=== PATIENT | female | born 1985 | race Caucasian/White ===

== ENCOUNTER 2017-12-24 09:30 | Inpatient (IN) | payer OTHER, SELFPAY ==
[2017-12-24 09:08] VITALS: BMI 31.0
[2017-12-24 09:27] LABS: ROM Internal Control Test YES-OK TO RESULT pt. (Internal QC)
[2017-12-24 09:29] LABS: ROM Patient Test POSITIVE (Negative)
[2017-12-24] MEDS: Lactated Ringers 1,000 ML 50 ML IV ×4 (10:40→21:42)
[2017-12-24 10:54] LABS: Hematocrit 37.5 % (37-47); Hemoglobin 12.2 g/dl (12.0-15.0); Mean Corp Hgb Conc 32.5 g/gl (32-36); Mean Corpuscular Hgb 29.3 pg (27.0-32.0); Mean Corpuscular Volume 90.1 fL (81-99); Mean Platelet Vol. 11.7 fl (6.2-12.0); Platelet Count 196 K/mm3 (150-450); RBC Distribution Width CV 13.5 % (11.6-14.6); RBC Distribution Width SD 44.6 fl (35.1-43.9); Red Blood Count 4.16 M/mm3 (4.2-5.4); White Blood Count 11.5 K/mm3 (4.4-11.0)
[2017-12-24 10:55] LABS: Scan Indicated on CBC? Y/N NO
--- NOTE | 2017-12-24 12:27 | PCM.HP.OB ---
- Problem List (1) Post-dates Status: Acute Qualifiers: Post-term type: 40-42 weeks gestation Qualified Code(s): O48.0 - Post-term (2) conceived through in vitro fertilization Status: Acute Qualifiers: Trimester: third trimester Qualified Code(s): O09.813 - Supervision of resulting from assisted reproductive technology, third trimester (3) Karina's thyroiditis Status: Acute (4) Excessive growth affecting management of mother in third trimester, antepartum Status: Acute Qualifiers: Fetus number: single or unspecified fetus Qualified Code(s): O36.63X0 - Maternal care for excessive growth, third trimester, not applicable or unspecified (5) History of spontaneous , currently Status: Acute History Date of Admission: 12/24/17 Gestational age: 40 History of this : 32 year old female. at 40 weeks 2days EGA by embryo transfer date, JERRI 12/22/17. IVF . Presented to L&D with contractions that started at 0400 this am. [place] small gush of fluid in shower around 0700. Arrived to L&D around 0815 and was karen every 3minutes. ROM plus positive and admitted. at bedside. Sitting on ball and breathing with contractions. history: History of infertility and current concieved through IVF. Previous spontaneous post IVF Karina's Excessive weight gain >92nd% Allergies doxycycline Adverse Reaction (Verified 12/24/17 09:10) Rash Current Medications Acetaminophen (Tylenol) 325 - 650 mg PO Q4H PRN PRN PRN Reason: PAIN OR FEVER >100.4F Al Hydroxide/Mg Hydroxide (Mylanta Ii) 15 - 30 ml PO Q4H PRN PRN PRN Reason: INDIGESTION Citric Acid/Sodium Citrate (Bicitra) 30 ml PO UD PRN Lactated Ringer's () 1,000 mls @ 50 mls/hr IV .Q20H CHRISTINA Nalbuphine HCl (Nubain) 5 - 10 mg IV Q3H PRN PRN PRN Reason: PAIN (4-10/10) Ondansetron HCl (Zofran) 4 mg IV Q8H PRN PRN PRN Reason: NAUSEA Promethazine HCl (Phenergan (Ll)) 6.25 - 12.5 mg IV Q4H PRN PRN; Protocol PRN Reason: IF NAUSEA PERSISTS Sodium Chloride () 5 - 15 ml IV UD CHRISTINA Smoking Status: Never smoker Alcohol: None Drug Use: none Number of Fetus(es): 1 Review of Systems Constitutional: Denies: Chills, Fever, Weight Change Cardiovascular: Denies: Chest Pain, Palpitations Respiratory: Denies: Cough, Shortness of breath at rest, Sputum production Gastrointestinal: Denies: Nausea, Vomiting Genitourinary: Denies: Dysuria Physical Exam Vitals: GBS negative HIV negative RPR negative HBsAG negative 1hr GCT negative A negative-Rhogam given at 28 weeks Antibody screen negative GC/CT negative Rubella Immune U/S: 12/13/17 EFW 8lb 12oz, 92nd % ROM plus positive General: Alert, Oriented x3, No apparent distress, - - Coping well with contractions. Cardiovascular: Regular rate, Regular Rhythm, No murmurs Lungs: Clear to auscultation, No rhonchi, No wheeze Abdomen: Bowel Sounds Present, Gravid Extremities:: No edema Presentation: Cephalic Cervix Dilation (cm): 4 Station: -1 Effacement (%): 80 - FHT 135, moderate variability, no decels, Category 1. TOCO: q2-4 minutes, moderated to palpation. Assessment/Plan Active and Suspected Problems Post-dates (Acute) conceived through in vitro fertilization (Acute) Karina's thyroiditis (Acute) Excessive growth affecting management of mother in third trimester, antepartum (Acute) History of spontaneous , currently (Acute) A: Active Labor Spontaneous Rupture of Membranes Suspected macrosomia P: 1) Admit to L&D, routine orders 2) Planning epidural for pain management. Positional changes at this time, coping well and can request epidural when desired 3) Consulted regarding suspected macrosomia. Will be present for delivery. 4) GBS negative Gloria Garrido CNM
[2017-12-24] MEDS: Oxytocin 30 units/NS 500 ml 30 UNITS/500 ML IV.SOLN IV (15:50)
[2017-12-25] VITALS (28 sets, daily range): BP systolic 111–136; BP diastolic 52–84; PULSE 83–121; RESP 14–20; TEMP 36.1–37.8; O2SAT 96–100
[2017-12-25] MEDS: Acetaminophen 325 MG Tablet PO (03:06)
[2017-12-25] MEDS: Sodium Citrate/Citric Acid 30 ML UDC PO (03:20)
[2017-12-25] MEDS: Oxytocin 30 units/NS 500 ml 30 UNITS/500 ML IV.SOLN 167 UNITS IV (03:43)
[2017-12-25] MEDS: Ketorolac 30 MG/ML Syringe IV ×4 (04:00→21:41)
--- NOTE | 2017-12-25 04:11 | PCM.OPRPT ---
Report of Operation Date of Procedure: 12/25/17 Pre-Operative Diagnosis: arrest of descent and dilation Post-Operative Diagnosis: same Surgery/Procedure Performed:: primary LTCS cotton bag sewer: Gabbi Brooke
--- NOTE | 2017-12-25 04:15 | PCM.OB.CSR ---
Delivery Classification: MARY Final JERRI: 12/22/17 Final JERRI Source: US <20 weeks Gestational age: 40 Weeks and 3 Days Indications: Arrest of descent and dilation Description of Procedure: The patient had arrived in labor. Her labor was augmented. She began to have late decelerations that time she had minimal variability. I was called into evaluate her. At that point she had normal baseline with moderate variability and excels in no recurrent decelerations. However she remains 6 cm other than 4 hours despite adequate contractions. In addition her labor has been slowly progressing since her admission. The cervix was somewhat swollen and station was still -2 though there was a large amount of caput at this point. We reviewed the indication for . There is another starting and the decision was made that the fetus and mother were stable enough to wait for completion of that surgery. Questions were answered to her satisfaction she desired to proceed. The patient was taken to the operating room. She was prepped and draped in the dorsal supine position with a leftward tilt. A Pfannenstiel skin incision was made approximately 2 cm above the symphysis pubis and carried through to underlying layer fascia with the scalpel. The fascia was incised incised in the midline and extended laterally with the Payne scissors. The fascia was dissected off the rectus muscles with blunt and sharp dissection. The rectus muscles were in the midline and the peritoneum was entered bluntly. The peritoneal incision was stretched and the bladder blade was placed. The uterine incision was made in a low transverse fashion with the scalpel and extended superiorly and inferiorly with blunt dissection. Clear amniotic fluid returned.. The 's head was brought to the incision in the flexed position and delivered without difficulty. The remainder of the infant was delivered with gentle traction and fundal pressure in the standard fashion. The mouth and nares were bulb suctioned. The cord was clamped and cut as the infant was stimulated. The cord was clamped immediately as the was making some respiratory efforts but was not immediately vigorous. The infant was handed off to the waiting nursing staff. The placenta was delivered with fundal massage and gentle traction in the standard fashion. The uterus was exteriorized and cleared of all clots and debris.. The uterine incision was closed with #1 Vicryl in a running locked fashion. A second layer of the same suture was used in an imbricating fashion and the incision was examined for hemostasis. The uterus was placed back into the peritoneal cavity and hemostasis was assured. The rectus muscles were examined and any bleeding was Bovie cauterized. The parietal peritoneum and rectus muscles were closed en bloc with interrupted 0 Vicryl mattress sutures. The rectus fascia was examined and the bleeding was Bovie cauterized and the rectus fascia was closed with 1 Vicryl suture in a running standard fashion. The subcutaneous tissue was examining and any bleeding was Bovie cauterized. The skin was closed in a subcuticular fashion by the CONSTRUCTION SAFETY CONSULTANT with me present in the labor and delivery suite. All sponge, lap, and needle counts were correct. The patient was taken to her room for recovery in a stable condition. Amniotic Membrane Rupture Type: Spontaneous Amniotic Fluid Description: Clear Placenta Disposition: [facility] Drain: Rodríguez to straight drain Fluids Replaced: 1000 cc LR Cord Entanglement: None Cord Vessel Description: 3 Vessels Esitmated Blood Loss (ml): 800 Infant Gender: Male (1 minute): 8 (5 minute): 9 Delayed cord clamping: No Pre-op Antibiotic Given: Ancef 2 grams IV x1 Complications: None - Admit VTE Documentation VTE Present on Admission: No VTE Mechan Device Prophylaxis: SCD's VTE Pharm Prophylaxis ordered?: No Reason prophylaxis not ordered:: Procedure Not Indicated
[2017-12-25] MEDS: Lactated Ringers 1,000 ML 100 ML IV ×3 (04:30→17:51)
[2017-12-25] MEDS: Levothyroxine 50 MCG Tablet PO (08:18)
[2017-12-25] MEDS: Prenatal Vits Tablet 1 TABLET PO (11:35)
[2017-12-25] MEDS: Acetaminophen 500 MG Tablet 1000 MG PO (15:44)
--- NOTE | 2017-12-25 16:04 | NURSING ---
Raised red rash noted at site of surgical drape. Skin warm to touch.
--- NOTE | 2017-12-25 17:54 | NURSING ---
at 1200 pads changed for small amt of rubra lochia
--- NOTE | 2017-12-25 17:55 | NURSING ---
prior to getting mom up to chair her pads changed for small amt of chris mueller at 1430
--- NOTE | 2017-12-25 18:51 | PCM.PN.OB ---
Patient Problems: Active and Suspected Problems History of spontaneous , currently (Acute) Excessive growth affecting management of mother in third trimester, antepartum (Acute) Karina's thyroiditis (Acute) conceived through in vitro fertilization (Acute) Post-dates (Acute) Subjective: No nausea. Pain well controlled. - Physical Exam General: Alert, Cooperative, No apparent distress Vital Signs Temp Pulse Resp BP Pulse Ox 98.9 F 92 16 123/71 H 98 12/25/17 16:45 12/25/17 18:00 12/25/17 18:00 12/25/17 15:50 12/25/17 18:00 Oxygen Delivery Method Room Air Weight: 79.5 kg Body Mass Index (BMI) 31.0 Intake and Output for Last 24 Hours 12/23/17 12/24/17 12/25/17 23:59 23:59 23:59 Intake Total 3271 / 3271 5452.6 / 5452.6 Output Total 1350 / 1350 4250 / 4250 Balance 1921 / 1921 1202.6 / 1202.6 Laboratory Tests Past 24 Hrs 12/25/17 07:50 Screen NEGATIVE Baby's Blood Type A POSITIVE Baby's DIEGO NEGATIVE Assessment/Plan Active and Suspected Problems History of spontaneous , currently (Acute) Excessive growth affecting management of mother in third trimester, antepartum (Acute) Karina's thyroiditis (Acute) conceived through in vitro fertilization (Acute) Post-dates (Acute) POD#0 s/p primary c/s doing well routine care
[2017-12-26 00:20] VITALS: BP 112/78; PULSE 80; RESP 16; TEMP 36.6; O2SAT 99
[2017-12-26 02:00] VITALS: PULSE 80; RESP 16; O2SAT 99
[2017-12-26] MEDS: Ketorolac 30 MG/ML Syringe IV ×4 (03:38→22:16)
[2017-12-26 03:52] VITALS: BP 119/57; PULSE 88; RESP 16; TEMP 36.8; O2SAT 99
[2017-12-26 05:17] LABS: Hemoglobin 9.5 g/dl (12.0-15.0); Mean Corp Hgb Conc 32.8 g/gl (32-36); Mean Corpuscular Hgb 30.3 pg (27.0-32.0); Mean Corpuscular Volume 92.4 fL (81-99); Platelet Count 160 K/mm3 (150-450); RBC Distribution Width CV 13.8 % (11.6-14.6); RBC Distribution Width SD 45.2 fl (35.1-43.9); Red Blood Count 3.14 M/mm3 (4.2-5.4); White Blood Count 16.8 K/mm3 (4.4-11.0)
[2017-12-26 05:29] LABS: Scan Indicated on CBC? Y/N NO
[2017-12-26] MEDS: Levothyroxine 50 MCG Tablet PO (05:33)
[2017-12-26 08:00] VITALS: BP 112/71; PULSE 88; TEMP 36.8; O2SAT 96
[2017-12-26] MEDS: Acetaminophen 500 MG Tablet 1000 MG PO ×2 (08:21→20:45)
--- NOTE | 2017-12-26 08:52 | PCM.PN.OB ---
Patient Problems: Active and Suspected Problems History of spontaneous , currently (Acute) Excessive growth affecting management of mother in third trimester, antepartum (Acute) Karina's thyroiditis (Acute) conceived through in vitro fertilization (Acute) Post-dates (Acute) Subjective: pain well controlled, average lochia. No N/V. Working on - Physical Exam General: Alert, Cooperative, No apparent distress Abdomen: Soft, Distended - moderately, softly, Tender - appropriately Extremities: Edema - 1+ Skin: Incision - bandage clean, dry and intact Vital Signs Temp Pulse Resp BP Pulse Ox 98.3 F 88 16 112/71 96 12/26/17 08:00 12/26/17 08:00 12/26/17 03:52 12/26/17 08:00 12/26/17 08:00 Oxygen Delivery Method Room Air Weight: 79.5 kg Body Mass Index (BMI) 31.0 Intake and Output for Last 24 Hours 12/24/17 12/25/17 12/26/17 23:59 23:59 23:59 Intake Total 3271 / 3271 6122.6 / 6122.6 800 / 800 Output Total 1350 / 1350 5050 / 5050 1900 / 1900 Balance 1921 / 1921 1072.6 / 1072.6 -1100 / -1100 Laboratory Tests Past 24 Hrs 12/25/17 12/26/17 07:50 04:50 WBC 16.8 H RBC 3.14 L Hgb 9.5 L Hct 29.0 L MCV 92.4 MCH 30.3 MCHC 32.8 RDW 13.8 RDW Differential 45.2 H Plt Count 160 MPV 12.0 Screen NEGATIVE Baby's Blood Type A POSITIVE Baby's DIEGO NEGATIVE Assessment/Plan Active and Suspected Problems History of spontaneous , currently (Acute) Excessive growth affecting management of mother in third trimester, antepartum (Acute) Karina's thyroiditis (Acute) conceived through in vitro fertilization (Acute) Post-dates (Acute) POD#1 doing well mild acute blood loss anemia appropriate for EBL from surgery infant doing well routine care
[2017-12-26] MEDS: 0.9% Saline Lock 10 ML Syringe IV ×3 (10:42→22:16)
[2017-12-26] MEDS: Prenatal Vits Tablet 1 TABLET PO (13:17)
[2017-12-26] MEDS: Senna Tablet 2 TABLET PO (14:22)
[2017-12-26 14:24] VITALS: BP 117/78; PULSE 85; RESP 16; TEMP 36.8; O2SAT 97
--- NOTE | 2017-12-26 16:42 | NURSING ---
1500 Mom requesting an electric breast pump for home use. Pump given per insurance verification and instructed on using her pump. Mom doing a great job with feedings. Ciara
[2017-12-26 20:25] VITALS: BP 125/75; PULSE 103; RESP 18; TEMP 37.6; O2SAT 96
[2017-12-27 02:10] VITALS: BP 120/69; PULSE 92; RESP 18; TEMP 36.4; O2SAT 97
[2017-12-27] MEDS: Naproxen 250 MG Tablet PO ×2 (06:00→14:58)
[2017-12-27] MEDS: Levothyroxine 25 MCG TABLET PO (06:08)
[2017-12-27 08:09] VITALS: BP 113/63; PULSE 86; RESP 18; TEMP 36.8; O2SAT 97
--- NOTE | 2017-12-27 08:09 | PCM.PN.OB ---
Patient Problems: Active and Suspected Problems History of spontaneous , currently (Acute) Excessive growth affecting management of mother in third trimester, antepartum (Acute) Karina's thyroiditis (Acute) conceived through in vitro fertilization (Acute) Post-dates (Acute) Subjective: pain well controlled, average lochia, no N/V, +flatus, no BM - Physical Exam General: Alert, Cooperative, No apparent distress Abdomen: Soft, Distended - moderately, softly, Tender - appropriately Extremities: Edema - 1+ Skin: Incision - bandage clean, dry and intact Vital Signs Temp Pulse Resp BP Pulse Ox 97.6 F L 92 18 120/69 97 12/27/17 02:10 12/27/17 02:10 12/27/17 02:10 12/27/17 02:10 12/27/17 02:10 Oxygen Delivery Method Room Air Weight: 79.5 kg Body Mass Index (BMI) 31.0 Intake and Output for Last 24 Hours 12/25/17 12/26/17 12/27/17 23:59 23:59 23:59 Intake Total 6122.6 / 6122.6 800 / 800 Output Total 5050 / 5050 1900 / 1900 Balance 1072.6 / 1072.6 -1100 / -1100 Assessment/Plan Active and Suspected Problems History of spontaneous , currently (Acute) Excessive growth affecting management of mother in third trimester, antepartum (Acute) Karina's thyroiditis (Acute) conceived through in vitro fertilization (Acute) Post-dates (Acute) POD#2 doing well working on likely home later today
--- NOTE | 2017-12-27 08:11 | PCM.DC.SUM ---
Discharge Date and Diagnosis - Problem List Patient Problems: Active and Suspected Problems History of spontaneous , currently (Acute) Excessive growth affecting management of mother in third trimester, antepartum (Acute) Karina's thyroiditis (Acute) conceived through in vitro fertilization (Acute) Post-dates (Acute) Date of Admission: 12/24/17 Date of Discharge: 12/27/17 - Primary Discharge Diagnosis Active and Suspected Problems History of spontaneous , currently (Acute) Excessive growth affecting management of mother in third trimester, antepartum (Acute) Karina's thyroiditis (Acute) conceived through in vitro fertilization (Acute) Post-dates (Acute) Hospital Course and Treatment Operations: - - primary LTCS via pfannensteil skin incision Procedures: None Summary of Care Provided: The patient is a 32 year old Female admitted in labor on 12/24/16 in labor. It was augmented. On 12/25/16 she remained 6 cm despite > 4 hrs of labor. Moderate caput. Primary LTCS performed without difficulty. Postop course unremarkable. Desired d/c on POD#2. [] Home Medications: Medications to take at Discharge Cetirizine HCl [Zyrtec] 10 mg PO DAILY 12/24/17 Levothyroxine [Synthroid] 25 mcg PO DAILY 12/24/17 Levothyroxine [Synthroid] 50 mcg PO DAILY 12/24/17 Vit Calc,Iron,Folic [ Vitamins] 1 tab PO DAILY 12/24/17 Ibuprofen [Motrin] 600 mg PO Q6H PRN #60 tab 12/27/17 Oxycodone HCl/Acetaminophen [Percocet 5/325] 1 - 2 tablet PO Q8 PRN 7 Days #28 tablet 12/27/17 Following Prescrptions Were Given to Patient: Oxycodone HCl/Acetaminophen [Percocet 5/325] 1 - 2 tablet PO Q8 PRN 7 Days #28 tablet PRN Reason: Pain Ibuprofen [Motrin] 600 mg PO Q6H PRN #60 tab PRN Reason: Pain Other Amb Orders: Electric breast pump Location: None Selected Primary Care Physician: Temo Kunz MD [Primary Care Provider] - Meaningful Use Info Meaningful Use Diagnoses (Choose all that apply): None applicable
[2017-12-27] MEDS: Acetaminophen 500 MG Tablet 1000 MG PO (08:25)
[2017-12-27] MEDS: Senna Tablet 2 TABLET PO (11:45)
[2017-12-27] MEDS: Prenatal Vits Tablet 1 TABLET PO (11:45)
== END 2017-12-27 17:20 | disposition home or self-care (01) | DRG 765 ==
LOC: WPOUT 09:33
PROVIDERS: Advanced Practice Midwife; Admitting Provider Obstetrics & Gynecology; Family Provider Family Medicine; PCP Family Medicine; Visit Provider Obstetrics & Gynecology
DX: O62.1 Secondary uterine inertia (principal); D62 Acute posthemorrhagic anemia; Z37.0 Single live birth; O99.02 Anemia complicating childbirth; O76 Abnormality in fetal heart rate and rhythm complicating labor and delivery; O48.0 Post-term pregnancy; E06.3 Autoimmune thyroiditis; O36.63X0 Maternal care for excessive fetal growth, third trimester, not applicable or unspecified; Z3A.40 40 weeks gestation of pregnancy
CPT/HCPCS: 59025; 59050; 84112; 85027; 85461; 86850; 86900; 90384; 99218; J7120; A4216; G0378; J2405; J2790

== ENCOUNTER → 2018-01-17 14:44 | Outpatient (CLI) | payer OTHER, SELFPAY ==
[2018-01-16 17:19] LABS: Absolute Lymphocyte Count 1.96 X10^3/ul (0.83-4.51); Absolute Neutrophil Count 8.4 X10^3/uL (2.0-7.7); Basophil# 0.05 X10^3/uL; Basophil% 0.4 % (0-1); Eosinophil# 0.29 X10^3/uL; Eosinophils% 2.5 % (0-5); Hematocrit 32.6 % (37-47); Lymphocyte # 1.96 X10^3/ul (4.0); Lymphocyte % 16.9 % (19-41); Mean Corp Hgb Conc 30.7 g/gl (32-36); Mean Corpuscular Hgb 28.6 pg (27.0-32.0); Mean Corpuscular Volume 93.1 fL (81-99); Mean Platelet Vol. 9.8 fl (6.2-12.0); Monocyte# 0.86 X10^3/uL; Monocyte% 7.4 % (0-10); Neutrophil # 8.36 X10^3/uL (2.7-7.7); Neutrophil % 72.2 % (47-70); Platelet Count 813 K/mm3 (150-450); RBC Distribution Width CV 13.6 % (11.6-14.6); RBC Distribution Width SD 44.7 fl (35.1-43.9); White Blood Count 11.6 K/mm3 (4.4-11.0)
[2018-01-16 17:27] LABS: Differential Indicated SCAN CRITERIA MET; POSITIVE COUNT YES; POSITIVE DIFFERENTIAL NO; POSITIVE MORPHOLOGY NO
[2018-01-16 17:40] LABS: Creatinine, Serum 0.64 mg/dL (0.55-1.02); EST Glomerular Filtration Rate 114 mL/min (>60); Est Glom Filt Rate - Afr Amer 138 mL/min (>60)
[2018-01-16 17:50] LABS: Differential Comment SCANNED
[2018-01-17 13:47] LABS: Pathologist Review Reviewed
--- NOTE | 2018-01-17 14:46 | CT_ITS ---
STUDY: CT ABDOMEN AND PELVIS WITH CONTRAST REASON FOR EXAM: Female, 32 years old. Postop fever after section on December 25, 2017.. RADIATION DOSAGE (If Supplied By Facility): CTDIvol = ( 12.64 ) mGy, DLP = ( 625.34 ) mGycm TECHNIQUE: Transaxial images were obtained from the dome of the diaphragm to the symphysis pubis without oral contrast. 100 ml of Isovue 300 contrast was administered. Sagittal and coronal images were reconstructed. Individualized dose optimization techniques were used for this CT. COMPARISON: Prior comparison studies are not available for review at this time. FINDINGS: There is a right-sided pleural effusion. There may be right basilar airspace consolidation and/or atelectasis. The left lung base is clear. The visualized portions of the heart are within normal limits. There is a loculated collection near the right lobe of liver that measures approximately 6.2 x 2.8 x 6.5 cm. There is a small loculated collection anterior to left lobe liver measuring 1.8 cm in size. There is a lucency within the posterior segment of the right lobe liver measuring approximately 2.5 cm in size. This could represent an hepatic abscess. There is a subtle lucency within the distal right lobe of the liver measuring 9.2 mm in size. This may represent a small hemangioma. The gallbladder is contracted. Normal spleen. Normal pancreas. Normal bilateral adrenal glands. Normal right kidney. There are nonobstructing calculi in lower pole of left kidney with the largest measuring approximately 5.8 mm in size. Is no evidence for hydronephrosis, hydroureter or radiopaque ureteral calculus. Normal visualized stomach. There is no evidence for dilated bowel or pneumoperitoneum. There is a small amount of pelvic fluid that could be postinfectious. Stool is visible throughout the colon suggesting possible fecal stasis and constipation. There is a calcified appendicolith. Normal abdominal aorta. Normal inferior vena cava. Normal retroperitoneum. Normal urinary bladder. The uterus is mildly enlarged probably related to recent . There appear to be a loculated collections anterior to the uterus adjacent to the urinary bladder that measures up to 2 cm in size. This could represent a tiny abscesses. There is also abnormal attenuation within the anterior lower uterine segment possibly related to recent section. This area of abnormal attenuation measures approximately 4.8 x 3.9 x 2.6 cm in size. This could represent either hematoma or abscess. Normal abdominal wall. Normal osseous structures. CT/Abdomen/Pelvis WITH Contrast IMPRESSION: 1. Right basilar airspace consolidation, atelectasis and pleural effusion could represent pneumonia. 2. Loculated collections adjacent to the liver as well as within the right lobe of liver could represent abscesses. 3. Multiple loculated pelvic collections lung which are located within the anterior uterus could represent abscesses. 4. Nonobstructing left-sided renal calculus. Electronically Signed: Isha Max MD at 15:51 EST , Service support ,
== END ==
PROVIDERS: Family Provider Family Medicine; PCP Family Medicine; Visit Provider Obstetrics & Gynecology
DX: R50.82 Postprocedural fever (principal); R10.30 Lower abdominal pain, unspecified
CPT/HCPCS: 36415; 74177; 82565; 85025; Q9967

== ENCOUNTER 2018-01-18 14:23 | Inpatient (IN) | payer OTHER, SELFPAY ==
[2018-01-18 15:30] VITALS: BP 120/77; PULSE 86; RESP 18; TEMP 36.7; O2SAT 98
[2018-01-18 15:37] VITALS: BMI 25.4
[2018-01-18 15:39] VITALS: BMI 25.5
[2018-01-18] MEDS: 0.9% Normal Saline 1,000 ML 15 ML IV (15:54)
[2018-01-18 15:58] VITALS: PULSE 88
[2018-01-18 16:49] LABS: Absolute Lymphocyte Count 1.99 X10^3/ul (0.83-4.51); Absolute Neutrophil Count 8.4 X10^3/uL (2.0-7.7); Basophil# 0.04 X10^3/uL; Basophil% 0.3 % (0-1); Eosinophils% 2.6 % (0-5); Hematocrit 30.5 % (37-47); Hemoglobin 9.5 g/dl (12.0-15.0); Lymphocyte # 1.99 X10^3/ul (4.0); Lymphocyte % 17.3 % (19-41); Mean Corp Hgb Conc 31.1 g/gl (32-36); Mean Corpuscular Hgb 28.8 pg (27.0-32.0); Mean Corpuscular Volume 92.4 fL (81-99); Mean Platelet Vol. 9.4 fl (6.2-12.0); Monocyte# 0.76 X10^3/uL; Monocyte% 6.6 % (0-10); Neutrophil # 8.35 X10^3/uL (2.7-7.7); Neutrophil % 72.8 % (47-70); Platelet Count 665 K/mm3 (150-450); RBC Distribution Width CV 13.4 % (11.6-14.6); White Blood Count 11.5 K/mm3 (4.4-11.0)
[2018-01-18 16:51] LABS: POSITIVE COUNT NO; POSITIVE DIFFERENTIAL NO; POSITIVE MORPHOLOGY NO
[2018-01-18 17:10] LABS: Anion Gap 6 (5-15); BUN 15 mg/dL (7-18); BUN/Creat Ratio 21.5 RATIO (10-20); Calcium,Total 8.6 mg/dL (8.5-10.1); Chloride 106 mmol/L (98-107); EST Glomerular Filtration Rate 103 mL/min (>60); Est Glom Filt Rate - Afr Amer 125 mL/min (>60); Estimated Creatinine Clearance 95.44 ml/min; Glucose 82 mg/dL (74-106); Potassium 4.3 mmol/L (3.5-5.1); Sodium Level 140 mmol/L (136-145)
--- NOTE | 2018-01-18 18:25 | HP.PCM_ITS ---
History and Physical Date of Admission: 01/18/18 32-year-old female status post primary low transverse section on December 25, 2017 presents for admission due to hepatic abscess. She had a prolonged labor, with arrest of dilation at 6 cm. Postoperatively she did well. I saw her back on January 02, 2018 and she was doing well. Her pain was getting better and she was afebrile. On January 03 she says she started to spike fevers and went to an outside urgent care where she was diagnosed with a UTI and placed on Bactrim. She remained afebrile but still did not feel well during that time but as soon as she stopped the antibiotic she spiked another fever. Went back to urgent care was placed on a different antibiotic and then contacted my office and was instructed to come in. On January 16, 2018 and at that time she was afebrile but complaining of some right upper quadrant pain that was worse with movement and inspiration. I ordered a CBC and a CT scan that was done on January 17. Results were not available until after office hours, and I spoke with the patient last evening and she states she was feeling somewhat better. Today when I consulted with interventional radiology and they confirm that it was a hepatic abscess I contacted the patient and discussed with her we would need to admit her. did not feel that there was access to drain the abscess due to its location. I then consulted with the infectious disease specialist on-call agreed that admitting her and monitoring her seemed reasonable at this point. Review of systems: General: Patient has not had any fevers over 100.5 in the past 2-3 days but she does feel achy and malaise when her Tylenol and ibuprofen wear off. She has been feeling fatigued GI: No dyspepsia, diarrhea, or constipation : No dysuria or hematuria, average lochia Past medical history: Infertility and Karina's thyroiditis Surgical history: Primary low transverse section performed on December 25, 2017 Social history: She denies illicit drug use Physical exam: General: Patient is awake, alert, no acute distress. Does appear slightly uncomfortable when moves. Abdomen: Incision is clean dry and intact. There is no rebound or guarding in the lower abdomen. There is some right upper quadrant tenderness. No referred pain from palpation elsewhere in her abdomen. Mild CVA tenderness on the right and over the posterior chest wall on the right. No hernias, no palpable masses Extremities: Trace edema Pelvic exam: Done on 01/16/2018 in the office by me. There was average lochia, normal-appearing vagina with small amount of pink discharge. No malodor or purulent discharge. Uterus was 10 weeks size and minimally tender. Cervix was normal. Vulva and genitalia were normal. Laboratory studies and CAT scan were reviewed Assessment and plan: Hepatic abscess status post on December 25, 2017 I had a phone conversation with the infectious disease specialist documentation improvement specialist. He agreed with the admission for IV antibiotics. However, after discussion with Dr. Morgan from general surgery, he recommended considering a second opinion about possible percutaneous drainage of the abscess tertiary care center. I reviewed the patient and she is agreeable to transport. She requests [facility] and I have paged the transport line there.
[2018-01-18 20:00] VITALS: BP 127/79; PULSE 98; RESP 18; TEMP 36.6; O2SAT 97
--- NOTE | 2018-01-18 20:18 | PN_ITS ---
Progress Note I spoke with internal medicine service at [facility]. Reviewed case and that I was recommending transport due to availability of interventional radiology second opinion and likely drainage/culture of abscess. He agreed to accept the transport. Patient is up to chair and nursing her baby. Afebrile and hemodynamically stable, normotensive.
--- NOTE | 2018-01-18 21:00 | NURSING ---
Called report to Shelby Norman, [phone] Unit nurse at [facility]. Notified nurse that patient will be bringing her and with her.
[2018-01-18] MEDS: Prenatal Vits Tablet 1 TABLET PO (21:13)
[2018-01-18] MEDS: Acetaminophen 500 MG Tablet 1000 MG PO (21:13)
--- NOTE | 2018-01-18 21:55 | NURSING ---
Pt was being released to go to [facility] by private car with , , and family.
== END 2018-01-18 21:55 | disposition short-term general hospital (02) | DRG 776 ==
PROVIDERS: Admitting Provider Obstetrics & Gynecology; Family Provider Family Medicine; PCP Family Medicine; Visit Provider Obstetrics & Gynecology
DX: O90.89 Other complications of the puerperium, not elsewhere classified (principal); K75.0 Abscess of liver; D64.9 Anemia, unspecified; O90.81 Anemia of the puerperium
CPT/HCPCS: 80048; 85025; 87040; J7030; J0295

== ENCOUNTER 2018-01-28 15:28 | Outpatient (RCR) | payer OTHER, SELFPAY ==
[2018-01-28 16:55] LABS: AST(SGOT) 16 U/L (15-37); Alanine Aminotransfer ALT/SGPT 18 U/L (13-56); Alkaline Phosphatase 70 U/L (45-117); Anion Gap 7 (5-15); BUN 12 mg/dL (7-18); BUN/Creat Ratio 20.4 RATIO (10-20); Bilirubin, Direct 0.08 mg/dL (0.00-0.30); Calcium,Total 8.2 mg/dL (8.5-10.1); Chloride 107 mmol/L (98-107); Creatinine, Serum 0.59 mg/dL (0.55-1.02); EST Glomerular Filtration Rate 125 mL/min (>60); Est Glom Filt Rate - Afr Amer 152 mL/min (>60); Globulin 4.1 g/dL (2.2-4.2); Glucose 57 mg/dL (74-106); Potassium 4.1 mmol/L (3.5-5.1); Protein, Total 7.1 g/dL (6.4-8.2); Sodium Level 139 mmol/L (136-145)
[2018-01-28 17:01] LABS: Absolute Lymphocyte Count 1.35 X10^3/ul (0.83-4.51); Absolute Neutrophil Count 7.4 X10^3/uL (2.0-7.7); Basophil# 0.02 X10^3/uL; Basophil% 0.2 % (0-1); Eosinophil# 0.42 X10^3/uL; Eosinophils% 4.2 % (0-5); Hematocrit 31.5 % (37-47); Hemoglobin 9.5 g/dl (12.0-15.0); Lymphocyte # 1.35 X10^3/ul (4.0); Lymphocyte % 13.4 % (19-41); Mean Corp Hgb Conc 30.2 g/gl (32-36); Mean Corpuscular Hgb 27.5 pg (27.0-32.0); Mean Corpuscular Volume 91.3 fL (81-99); Mean Platelet Vol. 10.8 fl (6.2-12.0); Monocyte# 0.91 X10^3/uL; Neutrophil # 7.36 X10^3/uL (2.7-7.7); Neutrophil % 72.8 % (47-70); Platelet Count 414 K/mm3 (150-450); RBC Distribution Width CV 14.4 % (11.6-14.6); RBC Distribution Width SD 47.8 fl (35.1-43.9); Red Blood Count 3.45 M/mm3 (4.2-5.4); White Blood Count 10.1 K/mm3 (4.4-11.0)
[2018-01-28 17:08] LABS: POSITIVE COUNT NO; POSITIVE DIFFERENTIAL NO; POSITIVE MORPHOLOGY NO
== END 2018-02-16 23:59 ==
LOC: LABSPEC 15:28
PROVIDERS: Family Provider Family Medicine; PCP Family Medicine; Visit Provider Internal Medicine Infectious Disease
DX: K75.0 Abscess of liver (principal)
CPT/HCPCS: 80048; 80076; 85025

== ENCOUNTER 2018-02-11 15:27 | Outpatient (RCR) | payer OTHER, SELFPAY ==
[2018-02-04 17:59] LABS: Absolute Lymphocyte Count 1.53 X10^3/ul (0.83-4.51); Absolute Neutrophil Count 6.5 X10^3/uL (2.0-7.7); Basophil# 0.04 X10^3/uL; Basophil% 0.4 % (0-1); Eosinophil# 0.23 X10^3/uL; Eosinophils% 2.6 % (0-5); Hematocrit 33.8 % (37-47); Hemoglobin 10.5 g/dl (12.0-15.0); Lymphocyte # 1.53 X10^3/ul (4.0); Lymphocyte % 17.2 % (19-41); Mean Corp Hgb Conc 31.1 g/gl (32-36); Mean Corpuscular Hgb 28.4 pg (27.0-32.0); Mean Corpuscular Volume 91.4 fL (81-99); Mean Platelet Vol. 10.5 fl (6.2-12.0); Monocyte# 0.56 X10^3/uL; Monocyte% 6.3 % (0-10); Neutrophil # 6.52 X10^3/uL (2.7-7.7); Neutrophil % 73.2 % (47-70); Platelet Count 429 K/mm3 (150-450); RBC Distribution Width CV 14.6 % (11.6-14.6); RBC Distribution Width SD 48.6 fl (35.1-43.9); White Blood Count 8.9 K/mm3 (4.4-11.0)
[2018-02-04 18:14] LABS: POSITIVE COUNT NO; POSITIVE DIFFERENTIAL NO; POSITIVE MORPHOLOGY NO
[2018-02-04 18:32] LABS: BUN 11 mg/dL (7-18); Creatinine, Serum 0.74 mg/dL (0.55-1.02); EST Glomerular Filtration Rate 96 mL/min (>60); Glucose 118 mg/dL (74-106)
[2018-02-04 18:33] LABS: AST(SGOT) 18 U/L (15-37); Alanine Aminotransfer ALT/SGPT 17 U/L (13-56); Albumin, Serum 3.2 g/dL (3.2-5.0); Alkaline Phosphatase 67 U/L (45-117); Anion Gap 8 (5-15); BUN/Creat Ratio 14.8 RATIO (10-20); Bilirubin, Direct 0.06 mg/dL (0.00-0.30); Calcium,Total 8.3 mg/dL (8.5-10.1); Chloride 106 mmol/L (98-107); Est Glom Filt Rate - Afr Amer 116 mL/min (>60); Globulin 4.2 g/dL (2.2-4.2); Potassium 3.5 mmol/L (3.5-5.1); Protein, Total 7.4 g/dL (6.4-8.2); Sodium Level 141 mmol/L (136-145)
[2018-02-11 19:00] LABS: Absolute Lymphocyte Count 2.06 X10^3/ul (0.83-4.51); Absolute Neutrophil Count 5.6 X10^3/uL (2.0-7.7); Basophil# 0.02 X10^3/uL; Basophil% 0.2 % (0-1); Eosinophil# 0.25 X10^3/uL; Hematocrit 34.5 % (37-47); Hemoglobin 10.4 g/dl (12.0-15.0); Lymphocyte # 2.06 X10^3/ul (4.0); Lymphocyte % 24.4 % (19-41); Mean Corp Hgb Conc 30.1 g/gl (32-36); Mean Corpuscular Volume 92.7 fL (81-99); Mean Platelet Vol. 10.4 fl (6.2-12.0); Monocyte# 0.49 X10^3/uL; Monocyte% 5.8 % (0-10); Neutrophil % 66.4 % (47-70); Platelet Count 410 K/mm3 (150-450); RBC Distribution Width CV 15.1 % (11.6-14.6); RBC Distribution Width SD 51.4 fl (35.1-43.9); Red Blood Count 3.72 M/mm3 (4.2-5.4); White Blood Count 8.4 K/mm3 (4.4-11.0)
[2018-02-11 19:02] LABS: POSITIVE COUNT NO; POSITIVE DIFFERENTIAL NO; POSITIVE MORPHOLOGY NO
[2018-02-11 19:04] LABS: AST(SGOT) 19 U/L (15-37); Alanine Aminotransfer ALT/SGPT 21 U/L (13-56); Albumin, Serum 3.3 g/dL (3.2-5.0); Alkaline Phosphatase 61 U/L (45-117); Bilirubin, Direct 0.07 mg/dL (0.00-0.30); EST Glomerular Filtration Rate 88 mL/min (>60); Est Glom Filt Rate - Afr Amer 106 mL/min (>60); Globulin 3.9 g/dL (2.2-4.2); Protein, Total 7.2 g/dL (6.4-8.2)
[2018-02-12 14:05] LABS: Anion Gap 7 (5-15); BUN 11 mg/dL (7-18); BUN/Creat Ratio 13.7 RATIO (10-20); Calcium,Total 8.5 mg/dL (8.5-10.1); Chloride 109 mmol/L (98-107); Glucose 80 mg/dL (74-106); Potassium 3.9 mmol/L (3.5-5.1); Sodium Level 143 mmol/L (136-145)
== END 2018-02-16 23:59 ==
LOC: HHLAB 15:27
PROVIDERS: Family Provider Family Medicine; PCP Family Medicine; Visit Provider Internal Medicine Infectious Disease
DX: K75.0 Abscess of liver (principal); Z45.2 Encounter for adjustment and management of vascular access device
CPT/HCPCS: 80048; 80076; 82565; 85025

== ENCOUNTER → 2018-02-14 08:01 | Outpatient (CLI) | payer OTHER, SELFPAY ==
--- NOTE | 2018-02-14 08:05 | CT_ITS ---
STUDY: CT ABDOMEN AND PELVIS WITH CONTRAST REASON FOR EXAM: Female, 32 years old. Follow-up abscess RADIATION DOSAGE (If Supplied By Facility): CTDIvol = ( 13.03 ) mGy, DLP = ( 477.5 ) mGycm TECHNIQUE: Transaxial images were obtained from the lower chest to the upper thighs with oral contrast. 100 ml of Isovue 300 contrast was administered. Sagittal and coronal images were reconstructed. Individualized dose optimization techniques were used for this CT. COMPARISON: January 17, 2018 FINDINGS: There is minimal dependent atelectasis in both lung bases. There is no pleural effusion. The heart is normal in size. There is a stable hemangioma at the dome of the liver. There is a stable hemangioma in the right lobe of the liver peripherally on image 47. There is a stable hemangioma in the left lobe of the liver peripherally on image 28. The gallbladder and biliary system are unremarkable. The spleen is unremarkable. The pancreas is unremarkable. The adrenal glands are unremarkable. The right kidney is unremarkable. There is no dilatation of the collecting system in the right kidney. The left kidney is unremarkable. There is no dilatation of the collecting system in the left kidney. The stomach is unremarkable. The small bowel is unremarkable. There is moderate stool throughout the colon. The appendix is visualized and appears normal. The aorta and branch vessels are unremarkable. The inferior vena cava is unremarkable. The retroperitoneum is unremarkable. There is very minimal residual density adjacent to the right lobe of the liver. The urinary bladder is unremarkable. There are persistent low density collections in the anterior lower aspect of the uterus with the largest measuring about 4.2 x 3.0 cm. This previously measured about 5.3 x 3.4 cm. There are no abnormal masses in the adnexal regions. There is trace fluid in the pelvis. There is stable scarring along the lower pelvic wall anteriorly. The visualized bones are unremarkable. CT/Abdomen/Pelvis WITH Contrast IMPRESSION: There are no drainage catheters visualized. There are residual hematomas/seromas along the low anterior uterine wall which are decreased in size compared to the prior CT. The largest measures about 4.2 cm in the transverse plane. There is trace residual fluid in the pelvis which has improved compared to the prior CT. There is minimal residual complex fluid adjacent to the right lobe of the liver which has significantly improved compared to the prior CT. Lesions in both lobes of the liver are stable and are consistent with hemangiomas based on the imaging appearance. There has been resolution of the right pleural effusion. Electronically Signed: Melissa Carias MD at 12:51 EDT Tel Direct: [phone], Service support ,
== END ==
PROVIDERS: Family Provider Family Medicine; PCP Family Medicine; Visit Provider Internal Medicine Infectious Disease
DX: K75.0 Abscess of liver (principal)
CPT/HCPCS: 74177; Q9967

== ENCOUNTER → 2020-08-31 08:43 | Outpatient (CLI) | payer OTHER, SELFPAY ==
[2020-05-25 13:11] VITALS: BMI 24.0
[2020-08-31 12:59] LABS: Absolute Lymphocyte Count 1.69 X10^3/uL (0.83-4.51); Basophil# 0.02 X10^3/uL; Basophil% 0.3 % (0-1); Eosinophil# 0.11 X10^3/uL; Eosinophils% 1.7 % (0-5); Hematocrit 39.7 % (37-47); Hemoglobin 12.7 g/dL (12.0-15.0); Lymphocyte # 1.69 X10^3/ul (4.0); Lymphocyte % 26.8 % (19-41); Mean Corpuscular Hgb 29.6 pg (27.0-32.0); Mean Corpuscular Volume 92.5 fL (81-99); Mean Platelet Vol. 11.3 fl (6.2-12.0); Monocyte# 0.44 X10^3/uL; NRBC Flagged by Analyzer 0 % (0-5); Neutrophil # 4.04 X10^3/uL (2.7-7.7); Platelet Count 298 K/mm3 (150-450); RBC Distribution Width CV 12.5 % (11.6-14.6); RBC Distribution Width SD 42.6 fl (35.1-43.9); Red Blood Count 4.29 M/mm3 (4.2-5.4); White Blood Count 6.3 K/mm3 (4.4-11.0)
[2020-08-31 13:30] LABS: ALB/GLOB Ratio 0.9 RATIO (0.9-2.4); AST(SGOT) 12 U/L (15-37); Alanine Aminotransfer ALT/SGPT 18 U/L (13-56); Albumin, Serum 3.6 g/dL (3.2-5.0); Alkaline Phosphatase 51 U/L (45-117); Anion Gap 3 (5-15); BUN 8 mg/dL (7-18); BUN/Creat Ratio 11.1 RATIO (10-20); Calcium,Total 8.6 mg/dL (8.5-10.1); Chloride 109 mmol/L (98-107); Creatinine, Serum 0.72 mg/dL (0.55-1.02); EST Glomerular Filtration Rate 98 mL/min (>60); Est Glom Filt Rate - Afr Amer 118 mL/min (>60); Globulin 3.9 g/dL (2.2-4.2); Glucose 81 mg/dL (74-106); Potassium 4.1 mmol/L (3.5-5.1); Protein, Total 7.5 g/dL (6.4-8.2); Sodium Level 140 mmol/L (136-145); T4 Free Direct 1.15 ng/dL (0.76-1.46); Thyroid Stim Hormone (TSH) 1.75 uIU/mL (0.358-3.74)
== END ==
PROVIDERS: PCP Family Medicine; Referring Provider Internal Medicine Endocrinology, Diabetes & Metabolism; Visit Provider Internal Medicine Endocrinology, Diabetes & Metabolism
DX: E06.3 Autoimmune thyroiditis (principal); D50.9 Iron deficiency anemia, unspecified
CPT/HCPCS: 36415; 80053; 84439; 84443; 85025

== ENCOUNTER → 2020-09-08 11:26 | Outpatient (CLI) | payer OTHER, SELFPAY ==
[2020-05-25 13:11] VITALS: BMI 24.0
--- NOTE | 2020-09-08 11:27 | US_ITS ---
HISTORY: nodule COMPARISON: None TECHNIQUE: Grayscale and color Doppler sonography of the thyroid gland. FINDINGS: RIGHT LOBE: 3.8 x 1.3 x 1.6 cm LEFT LOBE: 3.4 x 1.4 x 1.4 cm ISTHMUS: 2.1 mm Lobulated with heterogeneous echogenicity. Vascular the within normal limits. Hypoechoic, solid right thyroid lobe nodule measuring 1.1 x 0.8 x 0.9 cm, wider than tall with lobulated margins and without calcifications, TIRADS 4. US/Thyroid IMPRESSION: 1. Right thyroid lobe nodule measuring 1.1 cm, , TIRADS 4. Follow-up recommended at 1, 2, 3 and 5 years. 2. Heterogeneous thyroid with some lobulation, appearance which can be seen with thyroiditis. at 0134 Reported and signed by: Sarita Pappas MD Electronically Signed: Sarita Pappas MD at 1:34 EDT Tel , Service support ,
== END ==
PROVIDERS: PCP Family Medicine; Referring Provider Internal Medicine Endocrinology, Diabetes & Metabolism; Visit Provider Internal Medicine Endocrinology, Diabetes & Metabolism
DX: E06.3 Autoimmune thyroiditis (principal); D50.9 Iron deficiency anemia, unspecified
CPT/HCPCS: 76536

== ENCOUNTER → 2021-08-30 08:29 | Outpatient (CLI) | payer OTHER, SELFPAY ==
[2021-08-30 13:05] LABS: T4 Free Direct 1.05 ng/dL (0.76-1.46); Thyroid Stim Hormone (TSH) 1.68 uIU/mL (0.358-3.74)
== END ==
PROVIDERS: PCP Family Medicine; Referring Provider Internal Medicine Endocrinology, Diabetes & Metabolism; Visit Provider Internal Medicine Endocrinology, Diabetes & Metabolism
DX: E03.8 Other specified hypothyroidism (principal); E06.3 Autoimmune thyroiditis; E04.2 Nontoxic multinodular goiter
CPT/HCPCS: 36415; 84439; 84443

== ENCOUNTER → 2023-08-27 | Outpatient (CLI) | payer OTHER, SELFPAY ==
[2023-08-27 13:22] LABS: ALB/GLOB Ratio 1.2 RATIO (0.9-2.4); AST(SGOT) 8 U/L (15-37); Alanine Aminotransfer ALT/SGPT 17 U/L (13-56); Albumin, Serum 3.8 g/dL (3.2-5.0); Alkaline Phosphatase 61 U/L (45-117); Anion Gap 5 (5-15); BUN 10 mg/dL (7-18); BUN/Creat Ratio 14.7 RATIO (10-20); Calcium,Total 8.8 mg/dL (8.5-10.1); Chloride 105 mmol/L (98-107); Creatinine, Serum 0.68 mg/dL (0.55-1.02); EST Glomerular Filtration Rate 103 mL/min (>60); Est Glom Filt Rate - Afr Amer 124 mL/min (>60); Globulin 3.3 g/dL (2.2-4.2); Glucose 87 mg/dL (74-106); Protein, Total 7.1 g/dL (6.4-8.2); Sodium Level 137 mmol/L (136-145); T4 Free Direct 1.09 ng/dL (0.76-1.46); Thyroid Stim Hormone (TSH) 1.84 uIU/mL (0.358-3.74)
== END | disposition home or self-care (01) ==
PROVIDERS: PCP Family Medicine; Referring Provider Internal Medicine Endocrinology, Diabetes & Metabolism; Visit Provider Internal Medicine Endocrinology, Diabetes & Metabolism
DX: E03.8 Other specified hypothyroidism (principal); E06.3 Autoimmune thyroiditis; E04.2 Nontoxic multinodular goiter
CPT/HCPCS: 36415; 80053; 84439; 84443